=== PATIENT | male | born 1945 | race Caucasian/White ===

== ENCOUNTER → 2023-08-02 | Outpatient (CLI) | payer MEDICARE ==
[~2023-08-02] MED LIST: ASPIRIN FOR CHI81 MG PO; FOSAMAX5 MG; FOSAMAX70 MG PO; PYRIDIUM200 MG PO
== END | disposition home or self-care (01) ==
LOC: CT 00:37
PROVIDERS: ATTEND Specialist
DX: J30.1 Allergic rhinitis due to pollen (principal); J34.2 Deviated nasal septum; J32.0 Chronic maxillary sinusitis; J32.1 Chronic frontal sinusitis